=== PATIENT | male | born 2005 | race Caucasian/White ===

== ENCOUNTER → 2024-04-02 12:30 | Outpatient (REF) | payer OTHER, SELFPAY | LOC: HWRAD 12:30 | PROVIDERS: ATTENDING PHYSICIAN Nurse Practitioner Family; FAMILY PHYSICIAN Physician Assistant Medical | DX: M54.16 Radiculopathy, lumbar region (principal) | CPT/HCPCS: 72110 ==

== ENCOUNTER 2024-09-10 11:26 | Day surgery (SDC) | payer BC, SELFPAY ==
[2024-09-10] VITALS (7 sets, daily range): BP systolic 137–143; BP diastolic 72–88; BMI 35.4
[2024-09-10] MEDS: TYLENOL 1000 MG PO (11:41)
[2024-09-10] MEDS: CELEBREX 200 MG PO (11:41)
== END 2024-09-10 14:45 | disposition home or self-care (01) ==
LOC: SDS 11:26
PROVIDERS: ATTENDING PHYSICIAN Student in an Organized Health Care Education/Training Program
DX: S92.352A Displaced fracture of fifth metatarsal bone, left foot, initial encounter for closed fracture (principal); X50.1XXA Overexertion from prolonged static or awkward postures, initial encounter
CPT/HCPCS: 28485